=== PATIENT | male | born 1990 | race African-American/Black ===

== ENCOUNTER 2016-08-11 15:51 | Emergency (ER) | payer OTHER ==
[2016-08-11] MEDS ORDERED: AZITHROMYCIN 250 MG TAB As Ordered ONE (18:13)
[2016-08-11] MEDS ORDERED: cefTRIAXone SOD 250 MG VIAL (J0696) As Ordered ONE (18:13)
[2016-08-11] MEDS ORDERED: ONDANSETRON 4 MG ORAL DISINTEGRATING TAB (S0181) As Ordered ONE (18:13)
[2016-08-11] MEDS ORDERED: metroNIDAZOLE (FLAGYL) 250 MG TAB As Ordered ONE (18:14)
--- NOTE | 2016-08-11 18:46 | EDDOCDS ---
Physician Documentation [facility] Name: Brian Mckee Age: 25 yrs Sex: Male : 1990 Arrival Date: 08/11/2016 Time: 15:51 Bed I6 / 28 Private MD: [facility] Disposition: 08/11/16 17:50 Discharged to Home/Self Care. Impression: Unspecified sexually transmitted disease - exposure. - Condition is Stable. - Discharge Instructions: Sexually Transmitted Disease. - Prescriptions for ZOFRAN ODT 4 mg - dissolve 1 tablet by ORAL route 4 times per day As needed do not chew, do not swallow whole; 10 tablet. - Medication Reconciliation, Local Pharmacy Hours form. - Follow up: [facility]; When: Tomorrow. - Problem is new. - Symptoms are unchanged. - Notes: return if worsening symptoms. call tomorrow [phone] and ask for charge nurse - they will look up in the computer result. Historical: - Allergies: no known allergies; - Home Meds: 1. none - PMHx: none; - PSHx: Bunion Surgery; - Social history: Smoking status: Patient uses tobacco products, light tobacco smoker. No barriers to communication noted, The patient speaks fluent Uzbek, Speaks appropriately for age. - Family history: Not pertinent. - : The pt / caregiver states he / she is not on anticoagulants. Home medication list is obtained from the patient. - Exposure Risk Screening:: None identified. Vital Signs: 08/11 15:53 BP 139 / 75; Pulse 92; Resp 18 S; Temp 98.3(O); Pulse Ox 99% on R/A; Weight 78.93 kg / dd6 174.01 lbs (R); Height 6 ft. 3 in. (190.50 cm) (R); 18:28 BP 126 / 88 LA Sitting (auto/reg); Pulse 75; Resp 20; Temp 98.4(R); Pulse Ox 99% on ar3 R/A; Pain 0/10; 15:53 Body Mass Index 21.75 (78.93 kg, 190.50 cm) dd6 MDM: 16:09 GC & Chlamydia Amplification Ordered. EDMS 17:47 cefTRIAXone 250 mg IM once ordered. ml 17:47 Ondansetron ODT Oral Disintegrating Tablet 4 mg PO once ordered. ml 17:47 azithromycin 1 grams PO once ordered. ml 17:47 metroNIDAZOLE 2 grams PO once ordered. ml Administered Medications: 18:20 Drug: Ondansetron ODT 4 mg [ondansetron 4 mg disintegrating tablet (1 tabs)] Route: PO; dls 18:43 Follow up: Response: No Adverse Reaction dls 18:20 Drug: azithromycin 1 grams [azithromycin 250 mg tablet (4 tabs)] Route: PO; dls 18:43 Follow up: Response: No Adverse Reaction dls 18:20 Drug: metroNIDAZOLE 2 grams [metronidazole 250 mg tablet (8 tabs)] Route: PO; dls 18:42 Follow up: Response: No Adverse Reaction dls 18:21 Drug: cefTRIAXone 250 mg [ceftriaxone 250 mg solution for injection (250 mg)] Route: dls IM; Site: right gluteus; 18:44 Follow up: Response: No Adverse Reaction dls Signatures: Dispatcher [employer] EDRodney Lieberman MD MD ml Scott, Debra RN RN [facility] Adilia Reeves RN RN hs1 MTDD
--- NOTE | 2016-08-11 18:46 | EDDOCDS ---
Nurse's Notes [facility] Name: Brian Mckee Age: 25 yrs Sex: Male : 1990 Arrival Date: 08/11/2016 Time: 15:51 Bed I6 / 28 Private MD: RIJENNIFER KAM Diagnosis: Unspecified sexually transmitted disease-exposure Presentation: 08/11 15:57 Presenting complaint: Patient states: was here earlier for trichomonas and he is hs1 here to be checked. Patient was trying other places however planned parent [facility] closed as well as walk in clinic [place]. Adult Sepsis Screening: The patient does not have new or worsening altered mentation. Patient's respiratory rate is less than 22. Systolic blood pressure is greater than 100. Patient has a qSOFA score of 0- Negative Sepsis Screen. 15:57 Acuity: BLAYNE Level 5 hs1 15:57 Method Of Arrival: Walkin/Carried/Asstd hs1 18:45 Suicide/Homicide risk assessment- the patient denies having any suicidal and/or dls homicidal ideations and does not present with any other emotional, behavioral or mental health complaints. Status: The patient is an active duty automotive service director. Transition of care: patient was not received from another setting of care. Triage Assessment: 16:02 General: Appears in no apparent distress, Behavior is appropriate for age, cooperative. hs1 Pain: Denies pain. HIV screening NA for this visit Offered previously. Respiratory: No deficits noted. Historical: - Allergies: no known allergies; - Home Meds: 1. none - PMHx: none; - PSHx: Bunion Surgery; - Social history: Smoking status: Patient uses tobacco products, light tobacco smoker. No barriers to communication noted, The patient speaks fluent Azeri, Speaks appropriately for age. - Family history: Not pertinent. - : The pt / caregiver states he / she is not on anticoagulants. Home medication list is obtained from the patient. - Exposure Risk Screening:: None identified. Screenin:28 Screening information is obtained from the patient. Primary language is Azeri. Fall dls risk: No risks identified. Assistance ADL's: requires no assistance with activities of daily living. Abuse/DV Screen: The patient / caregiver reports he/she is: not in a situation that causes fear, pain or injury. Nutritional screening: No deficits noted. Advance Directives: Currently, there is no health care proxy. There is no active DNR order. There is no living will. There is no Power of Hide And Skin Processing Worker. Advance directive information has not previously been placed in an [facility] medical record. home support is adequate. Assessment: 17:27 General: Appears in no apparent distress, well developed, well nourished, well groomed. dls Awake, alert, oriented. Skin warm and dry. Moves all extremities. Bilateral breath sounds clear. Respirations unlabored. Abdomen soft, non-tender. No apparent distress. The patient / caregiver is instructed regarding the plan of care and ED course. Physical assessment to be completed by PA/ED. Vital Signs: 15:53 BP 139 / 75; Pulse 92; Resp 18 S; Temp 98.3(O); Pulse Ox 99% on R/A; Weight 78.93 kg dd6 (R); Height 6 ft. 3 in. (190.50 cm) (R); 18:28 BP 126 / 88 LA Sitting (auto/reg); Pulse 75; Resp 20; Temp 98.4(R); Pulse Ox 99% on ar3 R/A; Pain 0/10; 15:53 Body Mass Index 21.75 (78.93 kg, 190.50 cm) dd6 Vitals: 15:53 Log In Time: August 11, 2016 at 15:51. dd6 ED Course: 15:52 Patient visited by Lazaro Forrest PCA. dd6 15:52 Patient moved to Waiting dd6 15:53 [facility] is Private Physician. dd6 15:53 Patient moved to Pre RCE dd6 16:00 Triage Initiated hs1 16:49 GC & Chlamydia Amplification Sent. ar3 16:53 Patient moved to I9 js13 16:58 Patient visited by Yanci Quintanilla RN. dls 17:24 Rodney Singer MD is Attending Physician. ml 17:24 Patient visited by Rodney Singer MD. ml 17:28 Patient has correct armband on for positive identification. Bed in low position. Call dls light in reach. 17:29 Patient moved to I dls 17:49 [facility] is Referral Physician. ml 18:29 Patient visited by Tova Jefferson PCA. ar3 18:45 No IV's were initiated during this patient's visit. No procedures done that require dls assistance. Administered Medications: 18:20 Drug: Ondansetron ODT 4 mg [ondansetron 4 mg disintegrating tablet (1 tabs)] Route: PO; dls 18:43 Follow up: Response: No Adverse Reaction dls 18:20 Drug: azithromycin 1 grams [azithromycin 250 mg tablet (4 tabs)] Route: PO; dls 18:43 Follow up: Response: No Adverse Reaction dls 18:20 Drug: metroNIDAZOLE 2 grams [metronidazole 250 mg tablet (8 tabs)] Route: PO; dls 18:42 Follow up: Response: No Adverse Reaction dls 18:21 Drug: cefTRIAXone 250 mg [ceftriaxone 250 mg solution for injection (250 mg)] Route: dls IM; Site: right gluteus; 18:44 Follow up: Response: No Adverse Reaction dls Order Results: There are currently no results for this order. Outcome: 17:50 Discharge ordered by Provider. ml 18:44 The following High Risk Discharge criteria are identified: None. Discharged to home dls ambulatory. Condition: stable. Discharge instructions given to patient, Instructed on discharge instructions, follow up and referral plans. Demonstrated understanding of instructions, Pt was receptive of discharge instructions/ teaching. No special radiology studies were completed. 18:45 Discharge Assessment: Patient awake, alert and oriented x 3. No cognitive and/or dls functional deficits noted. Patient verbalized understanding of disposition instructions. patient administered narcotics - no. Property sent home with patient. 18:46 Patient left the ED. dls Signatures: Rodney Singre MD MD ml Scott, Debra RN RN dls Lazaro Forrest, FITNESS ATTENDANT FITNESS ATTENDANT dd6 Tova Jefferson, FITNESS ATTENDANT FITNESS ATTENDANT ar3 Adilia Reeves RN RN hs1 Gilda Taylor RN RN js13 MTDD
--- NOTE | 2016-08-13 19:46 | EDDOCDS ---
Physician Documentation [facility] Name: Brian Mckee Jr Age: 25 yrs Sex: Male : 1990 Arrival Date: 08/11/2016 Time: 15:51 Bed I6 / 28 Private MD: [facility] Disposition: 08/11/16 17:50 Discharged to Home/Self Care. Impression: Unspecified sexually transmitted disease - exposure. - Condition is Stable. - Discharge Instructions: Sexually Transmitted Disease. - Prescriptions for ZOFRAN ODT 4 mg - dissolve 1 tablet by ORAL route 4 times per day As needed do not chew, do not swallow whole; 10 tablet. - Medication Reconciliation, Local Pharmacy Hours form. - Follow up: [facility]; When: Tomorrow. - Problem is new. - Symptoms are unchanged. - Notes: return if worsening symptoms. call tomorrow [phone] and ask for charge nurse - they will look up in the computer result. Historical: - Allergies: no known allergies; - Home Meds: 1. none - PMHx: none; - PSHx: Bunion Surgery; - Social history: Smoking status: Patient uses tobacco products, light tobacco smoker. No barriers to communication noted, The patient speaks fluent Occitan, Speaks appropriately for age. - Family history: Not pertinent. - : The pt / caregiver states he / she is not on anticoagulants. Home medication list is obtained from the patient. - Exposure Risk Screening:: None identified. Vital Signs: 08/11 15:53 BP 139 / 75; Pulse 92; Resp 18 S; Temp 98.3(O); Pulse Ox 99% on R/A; Weight 78.93 kg / dd6 174.01 lbs (R); Height 6 ft. 3 in. (190.50 cm) (R); 18:28 BP 126 / 88 LA Sitting (auto/reg); Pulse 75; Resp 20; Temp 98.4(R); Pulse Ox 99% on ar3 R/A; Pain 0/10; 15:53 Body Mass Index 21.75 (78.93 kg, 190.50 cm) dd6 MDM: 16:09 GC & Chlamydia Amplification Ordered. EDMS 17:47 cefTRIAXone 250 mg IM once ordered. ml 17:47 Ondansetron ODT Oral Disintegrating Tablet 4 mg PO once ordered. ml 17:47 azithromycin 1 grams PO once ordered. ml 17:47 metroNIDAZOLE 2 grams PO once ordered. ml 22:18 [facility] Payment Agreement was scanned into [email or web address] and attached to record. [facility] : Financial registration complete. [facility] 08/12 11:04 T-Sheet-- Draft Copy was scanned into [email or web address] and attached to record. gb Administered Medications: 08/11 18:20 Drug: Ondansetron ODT 4 mg [ondansetron 4 mg disintegrating tablet (1 tabs)] Route: PO; dls 18:43 Follow up: Response: No Adverse Reaction dls 18:20 Drug: azithromycin 1 grams [azithromycin 250 mg tablet (4 tabs)] Route: PO; dls 18:43 Follow up: Response: No Adverse Reaction dls 18:20 Drug: metroNIDAZOLE 2 grams [metronidazole 250 mg tablet (8 tabs)] Route: PO; dls 18:42 Follow up: Response: No Adverse Reaction dls 18:21 Drug: cefTRIAXone 250 mg [ceftriaxone 250 mg solution for injection (250 mg)] Route: dls IM; Site: right gluteus; 18:44 Follow up: Response: No Adverse Reaction dls Signatures: Dispatcher [employer] EDRodney Lieberman MD MD ml Scott, Debra RN RN dls Sybil Cortez, Reg Adilia Aguilera, RN RN hs Uzma Arellano The chart was reviewed and I authenticate all verbal orders and agree with the evaluation and treatment provided.Attachments: :18 [facility] Payment Agreement [facility] 08/12 11:04 T-Sheet-- Draft Copy gb Chart Complete MTDD
--- NOTE | 2016-08-13 19:47 | EDDOCDS ---
Nurse's Notes [facility] Name: Brian Mckee Jr Age: 25 yrs Sex: Male : 1990 Arrival Date: 08/11/2016 Time: 15:51 Bed I6 / 28 [facility] Diagnosis: Unspecified sexually transmitted disease-exposure Presentation: 08/11 15:57 Presenting complaint: Patient states: was here earlier for trichomonas and he is hs1 here to be checked. Patient was trying other places however planned parent [facility] closed as well as walk in clinic [place]. Adult Sepsis Screening: The patient does not have new or worsening altered mentation. Patient's respiratory rate is less than 22. Systolic blood pressure is greater than 100. Patient has a qSOFA score of 0- Negative Sepsis Screen. 15:57 Acuity: BLAYNE Level 5 hs1 15:57 Method Of Arrival: Walkin/Carried/Asstd hs1 18:45 Suicide/Homicide risk assessment- the patient denies having any suicidal and/or dls homicidal ideations and does not present with any other emotional, behavioral or mental health complaints. Status: The patient is an active duty dining services director. Transition of care: patient was not received from another setting of care. Triage Assessment: 16:02 General: Appears in no apparent distress, Behavior is appropriate for age, cooperative. hs1 Pain: Denies pain. HIV screening NA for this visit Offered previously. Respiratory: No deficits noted. Historical: - Allergies: no known allergies; - Home Meds: 1. none - PMHx: none; - PSHx: Bunion Surgery; - Social history: Smoking status: Patient uses tobacco products, light tobacco smoker. No barriers to communication noted, The patient speaks fluent Latvian, Speaks appropriately for age. - Family history: Not pertinent. - : The pt / caregiver states he / she is not on anticoagulants. Home medication list is obtained from the patient. - Exposure Risk Screening:: None identified. Screenin:28 Screening information is obtained from the patient. Primary language is Latvian. Fall dls risk: No risks identified. Assistance ADL's: requires no assistance with activities of daily living. Abuse/DV Screen: The patient / caregiver reports he/she is: not in a situation that causes fear, pain or injury. Nutritional screening: No deficits noted. Advance Directives: Currently, there is no health care proxy. There is no active DNR order. There is no living will. There is no Power of Sleeping Car Service Attendant. Advance directive information has not previously been placed in an [facility] medical record. home support is adequate. Assessment: 17:27 General: Appears in no apparent distress, well developed, well nourished, well groomed. dls Awake, alert, oriented. Skin warm and dry. Moves all extremities. Bilateral breath sounds clear. Respirations unlabored. Abdomen soft, non-tender. No apparent distress. The patient / caregiver is instructed regarding the plan of care and ED course. Physical assessment to be completed by PA/ED. Vital Signs: 15:53 BP 139 / 75; Pulse 92; Resp 18 S; Temp 98.3(O); Pulse Ox 99% on R/A; Weight 78.93 kg dd6 (R); Height 6 ft. 3 in. (190.50 cm) (R); 18:28 BP 126 / 88 LA Sitting (auto/reg); Pulse 75; Resp 20; Temp 98.4(R); Pulse Ox 99% on ar3 R/A; Pain 0/10; 15:53 Body Mass Index 21.75 (78.93 kg, 190.50 cm) dd6 Vitals: 15:53 Log In Time: August 11, 2016 at 15:51. dd6 ED Course: 15:52 Patient visited by Lazaro Forrest PCA. dd6 15:52 Patient moved to Waiting dd6 15:53 [facility] is Private Physician. dd6 15:53 Patient moved to Pre RCE dd6 16:00 Triage Initiated hs1 16:49 GC & Chlamydia Amplification Sent. ar3 16:53 Patient moved to I9 js13 16:58 Patient visited by Yanci Quintanilla RN. dls 17:24 Rodney Singer MD is Attending Physician. ml 17:24 Patient visited by Rodney Singer MD. ml 17:28 Patient has correct armband on for positive identification. Bed in low position. Call dls light in reach. 17:29 Patient moved to I6 dls 17:49 [facility] is Referral Physician. ml 18:29 Patient visited by Tova Jefferson PCA. ar3 18:45 No IV's were initiated during this patient's visit. No procedures done that require dls assistance. 22:18 [facility] [place] Agreement was scanned into [employer] and attached to record. gjb 23:10 Patient name changed from Brian\S\Jr\S\Rafi\S\ to Brian\S\ \S\Rafi Douglas. ED[facility] 08/12 11:04 T-Sheet-- Draft Copy was scanned into [employer] and attached to record. gb Administered Medications: 08/11 18:20 Drug: Ondansetron ODT 4 mg [ondansetron 4 mg disintegrating tablet (1 tabs)] Route: PO; dls 18:43 Follow up: Response: No Adverse Reaction dls 18:20 Drug: azithromycin 1 grams [azithromycin 250 mg tablet (4 tabs)] Route: PO; dls 18:43 Follow up: Response: No Adverse Reaction dls 18:20 Drug: metroNIDAZOLE 2 grams [metronidazole 250 mg tablet (8 tabs)] Route: PO; dls 18:42 Follow up: Response: No Adverse Reaction dls 18:21 Drug: cefTRIAXone 250 mg [ceftriaxone 250 mg solution for injection (250 mg)] Route: dls IM; Site: right gluteus; 18:44 Follow up: Response: No Adverse Reaction dls Order Results: Lab Order: GC & Chlamydia Amplification; SPEC'M 08/11/16 16:44 Test: CHLAMYDIA DNA AMPLIFICATION; Value: NEGATIVE; Range: NEGATIVE; Status: F Test: GC DNA AMPLIFICATION; Value: NEGATIVE; Range: NEGATIVE; Status: F Outcome: 17:50 Discharge ordered by Provider. 18:44 The following High Risk Discharge criteria are identified: None. Discharged to home dls ambulatory. Condition: stable. Discharge instructions given to patient, Instructed on discharge instructions, follow up and referral plans. Demonstrated understanding of instructions, Pt was receptive of discharge instructions/ teaching. No special radiology studies were completed. 18:45 Discharge Assessment: Patient awake, alert and oriented x 3. No cognitive and/or dls functional deficits noted. Patient verbalized understanding of disposition instructions. patient administered narcotics - no. Property sent home with patient. 18:46 Patient left the ED. dls Signatures: Dispatcher [employer] EDHI Rodney Singer MD MD ml Scott, Debra, RN RN dls Sybil Cortez, Daniele Reg Lazaro Hernandez, SUSTAINABLE AGRICULTURE SPECIALIST SUSTAINABLE AGRICULTURE SPECIALIST dd6 Tova Jefferson, SUSTAINABLE AGRICULTURE SPECIALIST SUSTAINABLE AGRICULTURE SPECIALIST ar3 Adilia Reeves, RN RN hs1 Gilda TaylorRN RN js13 Uzma Arellano Chart Complete MTDD
--- NOTE | 2016-08-13 19:47 | EDDOCDS ---
Physician Documentation [facility] Name: Brian Mckee Jr Age: 25 yrs Sex: Male : 1990 Arrival Date: 08/11/2016 Time: 15:51 Bed I6 / 28 Private MD: [facility] Disposition: 08/11/16 17:50 Discharged to Home/Self Care. Impression: Unspecified sexually transmitted disease - exposure. - Condition is Stable. - Discharge Instructions: Sexually Transmitted Disease. - Prescriptions for ZOFRAN ODT 4 mg - dissolve 1 tablet by ORAL route 4 times per day As needed do not chew, do not swallow whole; 10 tablet. - Medication Reconciliation, Local Pharmacy Hours form. - Follow up: [facility]; When: Tomorrow. - Problem is new. - Symptoms are unchanged. - Notes: return if worsening symptoms. call tomorrow [phone] and ask for charge nurse - they will look up in the computer result. Historical: - Allergies: no known allergies; - Home Meds: 1. none - PMHx: none; - PSHx: Bunion Surgery; - Social history: Smoking status: Patient uses tobacco products, light tobacco smoker. No barriers to communication noted, The patient speaks fluent Sami, Speaks appropriately for age. - Family history: Not pertinent. - : The pt / caregiver states he / she is not on anticoagulants. Home medication list is obtained from the patient. - Exposure Risk Screening:: None identified. Vital Signs: 08/11 15:53 BP 139 / 75; Pulse 92; Resp 18 S; Temp 98.3(O); Pulse Ox 99% on R/A; Weight 78.93 kg / dd6 174.01 lbs (R); Height 6 ft. 3 in. (190.50 cm) (R); 18:28 BP 126 / 88 LA Sitting (auto/reg); Pulse 75; Resp 20; Temp 98.4(R); Pulse Ox 99% on ar3 R/A; Pain 0/10; 15:53 Body Mass Index 21.75 (78.93 kg, 190.50 cm) dd6 MDM: 16:09 GC & Chlamydia Amplification Ordered. EDMS 17:47 cefTRIAXone 250 mg IM once ordered. ml 17:47 Ondansetron ODT Oral Disintegrating Tablet 4 mg PO once ordered. ml 17:47 azithromycin 1 grams PO once ordered. ml 17:47 metroNIDAZOLE 2 grams PO once ordered. ml 22:18 [facility] Payment Agreement was scanned into [email or web address] and attached to record. [facility] : Financial registration complete. [facility] 08/12 11:04 T-Sheet-- Draft Copy was scanned into [email or web address] and attached to record. gb Administered Medications: 08/11 18:20 Drug: Ondansetron ODT 4 mg [ondansetron 4 mg disintegrating tablet (1 tabs)] Route: PO; dls 18:43 Follow up: Response: No Adverse Reaction dls 18:20 Drug: azithromycin 1 grams [azithromycin 250 mg tablet (4 tabs)] Route: PO; dls 18:43 Follow up: Response: No Adverse Reaction dls 18:20 Drug: metroNIDAZOLE 2 grams [metronidazole 250 mg tablet (8 tabs)] Route: PO; dls 18:42 Follow up: Response: No Adverse Reaction dls 18:21 Drug: cefTRIAXone 250 mg [ceftriaxone 250 mg solution for injection (250 mg)] Route: dls IM; Site: right gluteus; 18:44 Follow up: Response: No Adverse Reaction dls Signatures: Dispatcher [employer] EDRodney Lieberman MD MD ml Scott, Debra RN RN dls Sybil Cortez, Reg Adilia Aguilera, RN RN hs Uzma Arellano The chart was reviewed and I authenticate all verbal orders and agree with the evaluation and treatment provided.Attachments: :18 [facility] Payment Agreement [facility] 08/12 11:04 T-Sheet-- Draft Copy gb Chart Complete MTDD
== END 2016-08-11 18:46 | disposition home or self-care (01) ==
LOC: M ED 15:51
DX: Z20.2 Contact with and (suspected) exposure to infections with a predominantly sexual mode of transmission (principal); Z11.2 Encounter for screening for other bacterial diseases; F17.200 Nicotine dependence, unspecified, uncomplicated
CPT/HCPCS: 87491; 87591; 96372; 99283; J0696

== ENCOUNTER 2016-12-19 00:21 | Emergency (ER) | payer OTHER ==
[~2016-12-19] VITALS: Ht 188 cm; Wt 79.8 kg
[2016-12-19] MEDS ORDERED: GOOD1POW4 PO (00:40)
[2016-12-19] MEDS ORDERED: ACETAMINOPHEN TAB 650MG DOSE (2X325MG) PO ONE (00:45)
[2016-12-19] MEDS ORDERED: KETOROLAC 30 MG/ML VIAL (J1885) IV ONE (03:00)
[2016-12-19] MEDS ORDERED: NS 1,000 ML IV ONE ×2 (03:00→04:15)
[2016-12-19 03:46] LABS: BASO # 0.1 K/mm3 (0.0-0.2); BASO % 0.4 % (0.0-1.0); EOS # 0.5 K/mm3 (0.0-0.50); EOS % 2.9 % (0.0-3.0); LARGE UNSTAINED CELL # 0.1 K/mm3 (0.0-0.4); LARGE UNSTAINED CELL % 0.5 % (0.0-4.0); LYMPH # 1.1 K/mm3 (1.5-6.5); LYMPH % 5.7 % (24.0-44.0); MEAN CORPUSCULAR HEMOGLOBIN 32.7 pg (27.0-33.0); MEAN CORPUSCULAR HGB CONC 34.9 g/dl (32.0-36.5); MEAN CORPUSCULAR VOLUME 93.9 fl (80.0-96.0); MONO # 0.5 K/mm3 (0.0-0.8); MONO % 2.8 % (0.0-5.0); NEUTROPHILS # 15.9 K/mm3 (1.8-7.7); NEUTROPHILS % 87.7 % (36.0-66.0); PLATELET COUNT, AUTOMATED 268 k/mm3 (150-450); WHITE BLOOD COUNT 18.1 K/mm3 (4.0-10.0)
[2016-12-19 03:59] LABS: ANION GAP 9 MEQ/L (8-16); BLOOD UREA NITROGEN 13 MG/DL (7-18); CALCIUM LEVEL 8.3 MG/DL (8.5-10.1); CARBON DIOXIDE LEVEL 25 MEQ/L (21-32); CHLORIDE LEVEL 105 MEQ/L (98-107); CREATININE FOR GFR 1.75 MG/DL (0.70-1.30); GLOMERULAR FILTRATION RATE > 60.0 (>60); GLUCOSE, FASTING 120 MG/DL (70-105); SODIUM LEVEL 139 MEQ/L (136-145)
[2016-12-19] MEDS ORDERED: AMPICILLIN SOD/SULBACTAM SOD 3 GM in D5W MINI-BAG PLUS 100 ML IV ONE (04:00)
--- NOTE | 2016-12-19 04:50 | REPUSA ---
CLINICAL HISTORY: Left tonsillar swelling. TECHNIQUE: Multiple axial CT images were obtained through the neck without IV contrast material. MPR coronal and sagittal sequences were obtained. COMMENTS: Enlarged left palatine tonsil. The oropharyngeal soft tissues are normal and bilaterally symmetric. The piriform sinuses are normal. There is no supra or infraglottic laryngeal mass. The proximal trachea is normal. There is no paravertebral soft tissue mass. The salivary glands are normal. There is no deep cervical or jugular lymphadenopathy. The paravertebral soft tissue space is normal. Limited images through the posterior fossa demonstrate no evidence for tonsilar herniation. Evaluation of the visualized lung apices reveals no evidence for abnormality. IMPRESSION: Enlarged left palatine tonsil. Findings are suggestive of tonsillitis. No peritonsillar abscess formation. Thank you for your kind referral of this patient.
[2016-12-19] MEDS ORDERED: AUGM875T27 PO (05:31)
[2016-12-19 05:35] VITALS: BP 95/56
== END 2016-12-19 05:58 | disposition home or self-care (01) ==
LOC: M ED 01:41
DX: J02.0 Streptococcal pharyngitis (principal)
CPT/HCPCS: 70490; 80048; 85025; 87040; 87880; 96361; 96365; 96375; 99284; J1885

== ENCOUNTER 2017-01-16 07:38 | Emergency (ER) | payer OTHER ==
[~2017-01-16] VITALS: Ht 190.5 cm; Wt 75.4 kg
[~2017-01-16 07:38] MED LIST: AUGM875T28 PO; GOOD1POW4 PO
[2017-01-16 07:51] VITALS: BP 121/75
[2017-01-16] MEDS ORDERED: DERMABOND TOPICAL SKIN ADHESIVE TOP ONE (08:00)
[2017-01-16] MEDS ORDERED: AUGM875T28 PO (08:08)
== END 2017-01-16 08:11 | disposition home or self-care (01) ==
LOC: M ED 07:38
DX: S61.212A Laceration without foreign body of right middle finger without damage to nail, initial encounter (principal); W25.XXXA Contact with sharp glass, initial encounter; Y92.099 Unspecified place in other non-institutional residence as the place of occurrence of the external cause; Y93.89 Activity, other specified; Y99.9 Unspecified external cause status

== ENCOUNTER 2017-03-19 10:36 | Day surgery (SDC) | payer OTHER ==
[~2017-03-19] VITALS: Ht 190.5 cm; Wt 78.0 kg
[2017-03-19] MEDS ORDERED: fentaNYL 100 MCG/2 ML INJECTION (J3010) As Ordered ONE (11:03)
[2017-03-19] MEDS ORDERED: MIDAZOLAM INJ 2 MG/2 ML VIAL (J2250) As Ordered ONE (11:03)
[2017-03-19] MEDS ORDERED: LR 1,000 ML IV SCH ×2 (11:15→13:30)
[2017-03-19] MEDS ORDERED: LIDOCAINE W/EPINEPHRINE 1% 20ML VIAL As Ordered ONE (12:08)
[2017-03-19] MEDS ORDERED: BUPIVACAINE/EPIN 0.5% 30 ML VIAL As Ordered ONE (12:08)
[2017-03-19] MEDS ORDERED: fentaNYL 100 MCG/2 ML INJECTION (J3010) IV PRN (13:30)
[2017-03-19] MEDS ORDERED: ONDANSETRON 4MG/2ML VIAL (J2405) IV PRN (13:30)
[2017-03-19] MEDS ORDERED: NORCO, ANEXSIA 5/325MG TABLET (HYDROcodone/ACETAMINOPHEN) As Ordered ONE (13:39)
[2017-03-19] MEDS ORDERED: NORCO, ANEXSIA 5/325MG TABLET (HYDROcodone/ACETAMINOPHEN) PO PRN (14:15)
[2017-03-19 14:40] VITALS: BP 112/82
--- NOTE | 2017-03-20 16:00 | RO ---
DATE OF PROCEDURE: 03/19/2017 PREOPERATIVE DIAGNOSIS: Chronic tonsillitis. POSTOPERATIVE DIAGNOSIS: Chronic tonsillitis. OPERATIVE PROCEDURE: Tonsillectomy SURGEON: Isidro Lowry MD SPOOL CLEANER HAND: ANESTHESIA: General. DESCRIPTION OF PROCEDURE: Under general anesthesia with the patient intubated, a Gaitan-Mayito mouth gag was inserted. The tonsillar area was infiltrated with lidocaine with epinephrine and Marcaine. Using a Coblator settings 6 and 4, the tonsil was dissected free from its bed on both sides. The base and apex and other areas were cauterized at a setting of 4 on the Coblator. No blood loss. A nasogastric tube was passed to suction the upper esophagus. Patient tolerated procedure well, was extubated, and transferred to the recovery room in excellent condition.
== END 2017-03-19 14:56 | disposition home or self-care (01) ==
LOC: M SDC 10:36
PROVIDERS: ATTEND Otolaryngology
DX: J35.01 Chronic tonsillitis (principal); R06.83 Snoring; Z72.0 Tobacco use
CPT/HCPCS: 42826; 88302; J2250; J2405; J3010